=== PATIENT | male | born 1970 | race Caucasian/White ===

== ENCOUNTER → 2020-08-29 09:47 | Outpatient (BNVA) | payer OTHER, SELFPAY | PROVIDERS: Family Provider Family Medicine; Referring Provider Nurse Practitioner; Visit Provider Orthopaedic Surgery | DX: M25.561 Pain in right knee (principal); M76.51 Patellar tendinitis, right knee | CPT/HCPCS: 73560; 73565 ==

== ENCOUNTER 2020-09-10 06:58 | Outpatient (CLI) | payer OTHER, SELFPAY ==
--- NOTE | 2020-09-10 07:15 | MR_ITS ---
WS: [id number] MRI RIGHT KNEE HISTORY: S83.206A - Unspecified tear of unspecified meniscus, current injury, right knee, initial enc ounter COMPARISON: 08/29/2020 Anterior cruciate ligament: Intact. Posterior cruciate ligament: Intact. Medial collateral ligament: Intact. Posterior lateral corner structures: Intact. Medial menisci: Abnormal signal with blunting involving the free edge of the posterior horn. Suspect radial tear. There is additional horizontal signal throughout the posterior horn but more likely intr asubstance degeneration than a tear. Lateral meniscus: Intact. Normal signal, size and shape. Extensor mechanism: Distal quadriceps tendon and patellar tendons are intact. Fluid and soft tissue: Small joint effusion. No Parker's cyst. Osseous and articular structures: Patellofemoral compartment: Moderate narrowing of patellofemoral joint space. Multifocal areas of cho ndromalacia and loss of cartilage. No full-thickness defects and no marrow edema. Medial compartment: Very mild narrowing of the medial compartment with thinning and fissuring of the cartilage. More significant cartilage abnormalities are noted along the weightbearing surface of the femoral condyle, close to the radial meniscal tear. Lateral compartment: Mild narrowing of the lateral compartment with thinning and fissuring of the car tilage. No full-thickness tears or marrow edema. MR/MR knee RT wo con* [id number] IMPRESSION: 1. Radial tear free edge involving the posterior horn of the medial meniscus. There is also associated moderate chondromalacia and cartilage injury. 2. Mild tricompartment changes of osteoarthritis with thinning and fissuring o f the cartilage. 3. Small suprapatellar joint effusion. 4. No fractures or marrow edema.
== END 2020-09-10 06:59 | disposition home or self-care (01) ==
LOC: RADSHAW 07:00
PROVIDERS: PCP Nurse Practitioner; Visit Provider Orthopaedic Surgery
DX: M25.461 Effusion, right knee (principal); M17.11 Unilateral primary osteoarthritis, right knee; S83.241A Other tear of medial meniscus, current injury, right knee, initial encounter; X58.XXXA Exposure to other specified factors, initial encounter
CPT/HCPCS: 73721

== ENCOUNTER 2020-09-10 07:17 | Outpatient (CLI) | payer OTHER, SELFPAY ==
--- NOTE | 2020-09-10 08:45 | MR_ITS ---
WS: [id number] MRI BRAIN WITH AND WITHOUT CONTRAST HISTORY: HEMIFACIAL SPASM OF R SIDE OF FACE COMPARISON: None available. TECHNIQUE: Multiplanar imaging performed through the brain with MultiHance 16 ml's IV. No acute infarcts are seen. Guillermo-white matter differentiation is well preserved. No susceptibility artifacts or prior lacunar infarcts. Ventricles and extra-axial spaces are normal. Clivus and pituitary gland are normal. Visualized posterior fossa and brainstem are also normal. Postcontrast images are negative for masses or vascular malformations. Small caliber distal LEFT vert ebral artery is probably a normal variant. Dural venous sinuses are normal. Paranasal sinuses: Well aerated with no significant disease. Mastoid air cells: Normal. Calvarium and scalp: Normal. MR/MR head wo/w con [id number] IMPRESSION: 1. No evidence for an acute infarct or enhancing mass. 2. Negative MRI brain with contrast.
[2020-09-10] MEDS: gadobenate dimeglumine 20 mL vial IV (09:20)
== END 2020-09-10 07:18 | disposition home or self-care (01) ==
PROVIDERS: PCP Nurse Practitioner; Visit Provider Nurse Practitioner
DX: G51.31 Clonic hemifacial spasm, right (principal)
CPT/HCPCS: 70553; A9577

== ENCOUNTER → 2020-09-21 08:41 | Outpatient (BNVA) | payer OTHER, SELFPAY | PROVIDERS: PCP Nurse Practitioner; Visit Provider Orthopaedic Surgery | DX: S83.206A Unspecified tear of unspecified meniscus, current injury, right knee, initial encounter (principal) | CPT/HCPCS: 87635 ==

== ENCOUNTER 2020-09-27 07:21 | Day surgery (SDC) | payer OTHER, SELFPAY ==
[2020-09-26 12:44] VITALS: BMI 25.7
[2020-09-27] VITALS (8 sets, daily range): BP systolic 125–144; BP diastolic 73–90; PULSE 70–85; RESP 12–20; TEMP 36.3–36.5; O2SAT 96–100
[2020-09-27] MEDS: sodium chloride 0.9% 1,000 ML 30 ML IV (07:44)
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
--- NOTE | 2020-09-27 08:18 | W.PM.OPSUD ---
Surgery/Procedure H&P Update DATE OF PROCEDURE: September 27, 2020 DATE H&P PERFORMED: 09/19/20 PREOP DIAGNOSIS: Knee medial meniscal tear right PLANNED PROCEDURE: Operation Date: 09/27/20 08:40 Proposed Procedures p Right knee arthroscopy with medial menisectomy 12761 S83.206A(Right) - Augie Samuel MD
[2020-09-27] MEDS: morphine 4 mg/mL SDV 1 mL 8 MG (08:30)
--- NOTE | 2020-09-27 09:05 | PM.OP ---
Operative Report Date of procedure: September 27, 2020 Pre-op Diagnosis: Knee medial meniscal tear right Post-op diagnosis: same Post-op Findings: Same Procedure Done: Right medial meniscectomy Pathology: none sent Surgeon: Augie Samuel Anesthesia: General Estimated blood loss (mL): 5 Tourniquet time (min): 7 Findings: Patient had a complex flap tear of the posterior third of his medial meniscus Condition: stable Disposition: PACU Procedure: Mr. Wilhelm was taken to the operating room and given a general anesthesia. He was given 2 g of Ancef. He is prepped and draped in the supine position with a tourniquet on the right thigh. The knee was infiltrated with 30 cc of 0.5% Marcaine and 8 mg of morphine. A timeout was performed. Knee was entered through a standard inferior medial and inferior lateral portals. The diagnostic portion of the arthroscopy was performed in the medial meniscal tear noted. With the knee flexed in a slight valgus stress adequate visualization of the meniscus was obtained. Initially an incisor shaver was used to debride the anterior based flap back to a stable rim. A basket was used to debride back a small remaining unstable superior flap. The werewolf was used to debride back the rim to a stable base. This allowed approximately 40% of the posterior horn medial meniscus to remain. There was some cartilaginous thinning over the medial weightbearing aspect the medial femoral condyle and the margins of this were cleaned up with the werewolf probe. No exposed subchondral bone was identified. The lateral compartment appeared pristine general softening and fibrillation was seen over the central patellar ridge but there was no significant unstable cartilage would benefit from debridement. The knee was irrigated with saline. Portals were closed with 3-0 Prolene. Sterile dressings were applied. The patient was extubated and taken to recovery room in stable condition
--- NOTE | 2020-09-27 09:32 | SUR.PHASEI ---
0932 PT IS AWAKE ALERT VERY TALKATIVE WANTS SPRITE TO DRINK PT MOVING RT LEG, PT REMINDED TO KEEP LEG STILL FOR NOW STRONG PULSE NOTED TO RT FOOT, FOOT PINK WARM DRESSING TO RT KNEE D/I REGULAR ICE BAG TO KNEE PT STATES ( I FEEL A TWINGE, BUT NOT PAIN ) REPORT TO OPS AND HANDOFF AT BEDSIDE.
[2020-09-27] MEDS: oxyCODONE-APAP 5-325 mg Tablet 1 TAB PO (09:44)
--- NOTE | 2020-09-27 14:47 | ANE.PACU2 ---
Inpatient post-anesthesia follow up: Airway intact: Yes Vital signs: Temperature 97.7 F Pulse Rate 78 Respiratory Rate 18 Blood Pressure 126/73 Pulse Oximetry 98 Oxygen Delivery Me thod Room Air Oxygen Flow Rate 8 Fraction of Inspir ed Oxygen Hydration adequate: Yes Nausea and vomiting: No Pain level: 2 Mental status: Baseline
== END 2020-09-27 10:14 | disposition home or self-care (01) ==
PROVIDERS: PCP Nurse Practitioner; Visit Provider Orthopaedic Surgery
PROC: (CPT 29870; principal; 2020-09-27 08:40)
DX: S83.241A Other tear of medial meniscus, current injury, right knee, initial encounter (principal); X58.XXXA Exposure to other specified factors, initial encounter; G47.30 Sleep apnea, unspecified
CPT/HCPCS: 29881; J0690; J1100; J1885; J2250; J2270; J2405; J2704; J3010; J3490; J7030

== ENCOUNTER → 2021-02-12 10:15 | Outpatient (BNVA) | payer OTHER, SELFPAY | PROVIDERS: PCP Nurse Practitioner; Visit Provider Specialist | DX: G51.31 Clonic hemifacial spasm, right (principal); Z71.89 Other specified counseling | CPT/HCPCS: 99204 ==

== ENCOUNTER → 2021-04-18 13:58 | Outpatient (BNVA) | payer OTHER, SELFPAY | PROVIDERS: PCP Nurse Practitioner; Visit Provider Specialist | DX: G51.31 Clonic hemifacial spasm, right (principal); Z71.89 Other specified counseling | CPT/HCPCS: 64612; J0585 ==